=== PATIENT | female | born 1980 | race Caucasian/White ===

== ENCOUNTER 2016-12-11 18:02 | Emergency (ER) | payer OTHER ==
[2016-12-11 18:18] VITALS: BP 114/82; PULSE 79; RESP 16; TEMP 97.5; O2SAT 97
--- NOTE | 2016-12-11 18:23 | EDPHY ---
H & P Stated Complaint: had 15 minute episode of visual change about 1700 today now resolv HPI/ROS: HPI CHIEF COMPLAINT: Temporary vision loss HISTORY OF PRESENT ILLNESS: This patient very pleasant 36-year-old female no significant medical or surgical history does not take any daily medications, she presents emergency room by private vehicle after she developed vision loss what she thinks is out of her right eye. She states around 5 p.m. this evening she developed loss of vision out of her right eye she tells me that she was reading and she could only see half the page. She tells me is she scrotal horizontally through the words she could not see the words behind when she was reading or trailing words. No central vision loss no eye pain. She tells me this lasted 20 minutes it is now resolved. Her vision is back to normal. She denies double vision, she does tell me that she has some discomfort behind both of her eyes. She does not feel that she lost vision out of both of her eyes she thinks it was mainly out of her right eye. No headache. No neck pain no chest pain no shortness of breath no fever no recent illness. 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 Family History: Noncontributory ROS REVIEW OF SYSTEMS: A comprehensive 10 point review of systems is otherwise negative aside from elements mentioned in the history of present illness. Exam Constitutional appears well nontoxic, triage nursing summary reviewed, vital signs reviewed, awake/alert. Eyes normal conjunctivae and sclera, EOMI, PERRLA. Eye exam, extraocular movements intact, visual acuity reviewed and normal, no double vision, posterior eye exam without dilatation of the right eye and left eye appear normal, anterior chambers are normal. No proptosis. Conjunctiva normal, no flare. Globes are soft. visual acuity is been reviewed 20/20 both eyes 20/20 each eye. HENT normal inspection, atraumatic, moist mucus membranes, no epistaxis, neck supple/ no meningismus, no raccoon eyes. Respiratory clear to auscultation bilaterally, normal breath sounds, no respiratory distress, no wheezing. Cardiovascular rate normal, regular rhythm, no murmur, no edema, distal pulses normal. Gastrointestinal soft, non-tender, no rebound, no guarding, normal bowel sounds, no distension, no pulsatile mass. Genitourinary no CVA tenderness. Musculoskeletal no midline vertebral tenderness, full range of motion, no calf swelling, no tenderness of extremities, no meningismus, good pulses, neurovascularly intact. Skin pink, warm, & dry, no rash, skin atraumatic. Neurologic awake, alert and oriented x 3, AAOx3, moves all 4 extremities equally, motor intact, sensory intact, CN II-XII intact, normal cerebellar, normal vision, normal speech. Psychiatric normal mood/affect. Heme/Lymph/Immune no lymphadenopathy. Differential Diagnosis: Includes but is not limited to in a particular order ocular migraine, embolic stroke, basal spasm, doubt temporal arteritis, retinal venous thromboembolism, retinal detachment Medical Decision Making: Re-evaluation: 1837: I spoke with Ophthalmology on-call Dr. Colbert we discussed the case at length she does not feel that this patient needs any significant workup in the emergency room I did specifically asked her if she thought I should MRI her brain however she states that she does not feel that this is warranted. She would like to see her in the office tomorrow she agrees to see her would like her to call make an appointment. Patient does complain of blurry vision admitting ocular transient vision loss. Due to ongoing blurry vision I will perform an MRI brain without contrast to rule out stroke, also MRI angio of the head and neck to rule out occlusive disease in arterial system. If these are normal I feel confident that this patient can follow up with Ophthalmology outpatient for transient vision loss. Indication for MRI of brain is transient visual loss monocular vision right eye ongoing blurry vision. 1913: after great discussion with this patient and time with her thinking about if she wants these tests she has declined all test. Specifically she declined MRI and MRA of her head she declined blood work. She tells me she feels fine and wants to go home. She does understand by not getting appropriate testing there is a risk that this can come back cause worsening visual loss or permanent vision impairment. I did explain to her that if she decides that she would further like these testing including these MRIs and blood work that she is more welcome to return at any time to have this done. She also understands that if she develops vision loss tonight of further visual disturbance to return emergency room immediately. She also understands follow- up with Ophthalmology tomorrow. Call their for an appointment she has been referred. Source: Patient - Personal History LMP (Females 10-55): 1-7 Days Ago Current Tetanus/Diphtheria Vaccine: Unsure Current Tetanus Diphtheria and Acellular Pertussis (TDAP): Unsure - Medical/Surgical History Hx Asthma: No Hx Chronic Respiratory Disease: No Hx Diabetes: No Hx Cardiac Disease: No Hx Renal Disease: No Hx Cirrhosis: No Hx Alcoholism: No Hx HIV/AIDS: No Hx Splenectomy or Spleen Trauma: No Other PMH: denies - Social History Smoking Status: Never smoked Constitutional: Initial Vital Signs Temperature (C) 36.4 C 12/11/16 18:15 Heart Rate 79 12/11/16 18:15 Respiratory Rate 16 12/11/16 18:15 Blood Pressure 114/82 H 12/11/16 18:15 O2 Sat (%) 97 12/11/16 18:15 O2 Delivery Mode Room Air Allergies/Adverse Reactions: No Known Allergies Allergy (Unverified 12/11/16 18:15) Home Medications: Medication Instructions Recorded NK [No Known Home Meds] 12/11/16 Departure - Departure Disposition: Home, Routine, Self-Care Clinical Impression: Transient visual loss of right eye Condition: Good Instructions: Blurred Vision (ED) Additional Instructions: 1. Please follow up with Ophthalmology tomorrow call their for an appointment. 2. return emergency room if he develops any worsening symptoms questions or concerns includes loss of vision or visual disturbance. Referrals: [facility] [Other] - As per Instructions Mayra Colbert MD [Non Staff Provider (MD)] - As per Instructions
== END 2016-12-11 19:39 | disposition home or self-care (01) ==
DX: H53.121 Transient visual loss, right eye (principal)